=== PATIENT | male | born 1940 | race Caucasian/White ===

== ENCOUNTER 2021-10-03 10:59 | Outpatient (CLI) | payer OTHER | END 2021-10-03 11:00 | disposition home or self-care (01) | LOC: NUCLEAR 10:59 | PROVIDERS: ATTEND Physical Medicine & Rehabilitation | DX: I70.213 Atherosclerosis of native arteries of extremities with intermittent claudication, bilateral legs (principal) ==

== ENCOUNTER 2021-10-04 11:01 | Outpatient (CLI) | payer OTHER | END 2021-10-04 11:03 | disposition home or self-care (01) | LOC: NUCLEAR 11:01 | PROVIDERS: ATTEND Physical Medicine & Rehabilitation | DX: I87.2 Venous insufficiency (chronic) (peripheral) (principal) ==

== ENCOUNTER 2023-04-05 07:10 | Outpatient (CLI) | payer OTHER | END 2023-04-05 07:17 | disposition home or self-care (01) | LOC: SONOGRAMA 07:10 | PROVIDERS: ATTEND Internal Medicine Gastroenterology | DX: R16.2 Hepatomegaly with splenomegaly, not elsewhere classified (principal); K21.9 Gastro-esophageal reflux disease without esophagitis; K30 Functional dyspepsia; R13.0 Aphagia ==

== ENCOUNTER 2023-04-25 09:53 | Outpatient (CLI) | payer OTHER | END 2023-04-25 09:56 | disposition home or self-care (01) | LOC: SONOGRAMA 09:53 | PROVIDERS: ATTEND Physical Medicine & Rehabilitation | DX: M25.571 Pain in right ankle and joints of right foot (principal) ==